=== PATIENT | female | born 1970 | race Caucasian/White ===

== ENCOUNTER 2022-11-18 10:07 | Inpatient (IN) | payer MEDICARE, MEDICAID ==
[~2022-11-18] VITALS: Ht 167.6 cm; Wt 89.4 kg
[~2022-11-18 10:07] MED LIST: PARO40TA PO; VICOT PO
[2022-11-18 10:26] LABS: BASOPHILS % (AUTO) 0.5 % (0.0-2.0); EOSINOPHILS % (AUTO) 0.2 % (1.0-6.0); HEMATOCRIT 43.4 % (36-46); LYMPHOCYTES # (AUTO) 1.3 K/uL (1.0-4.8); LYMPHOCYTES % (AUTO) 12.3 % (22.0-44.0); MEAN CORPUSCULAR HEMOGLOBIN 30.8 pg (26.0-34.0); MEAN CORPUSCULAR HGB CONC 34.6 G/dL (31.0-37.0); MEAN CORPUSCULAR VOLUME 89 fL (80-100); MONOCYTES # (AUTO) 0.6 K/uL (0.1-1.0); MONOCYTES % (AUTO) 5.5 % (2.0-9.0); NEUTROPHILS # (AUTO) 8.5 K/uL (1.8-7.7); NEUTROPHILS % (AUTO) 81.5 % (40.0-70.0); PLATELET COUNT (AUTO) 240 K/uL (150-450); RED BLOOD CELL COUNT(AUTO) 4.88 MIL/uL (4.00-5.20); RED CELL DISTRIBUTION WIDTH 14.3 % (11.5-14.5)
[2022-11-18] MEDS ORDERED: SODIUM CHLORIDE 0.9% 1,000 ML IV ONE (10:30)
[2022-11-18 10:35] LABS: ANION GAP 7 mmol/L (8-16); CALCIUM, TOTAL 9.3 mg/dL (8.8-10.5); CARBON DIOXIDE 26 mmol/L (22-29); CHLORIDE 104 mmol/L (98-107); CREATININE 0.79 mg/dL (0.60-1.30); GLOMERULAR FILTR. RATE CALC > 60 mL/min (>60); GLUCOSE,RANDOM 120 mg/dL (70-110); POTASSIUM 3.6 mmol/L (3.5-5.1); SODIUM SERUM 137 mmol/L (136-145)
[2022-11-18 10:40] LABS: ALANINE AMINOTRANSFERASE 24 U/L (12-78); ALBUMIN 3.7 g/dL (3.4-5.0); ALKALINE PHOSPHATASE 103 U/L (46-116); ASPARTATE AMINOTRANSFERASE 20 U/L (15-37); BILIRUBIN,TOTAL 0.5 mg/dL (0.1-1.0); TOTAL PROTEIN, SERUM 7.5 g/dL (6.4-8.2)
[2022-11-18 10:45] LABS: ACETAMINOPHEN < 2 mcg/mL (10-30)
[2022-11-18 11:09] LABS: SALICYLATE 4.6 mg/dL (2.8-20.0)
[2022-11-18 11:33] LABS: COVID AG,FIA SOURCE NASAL SWAB
[2022-11-18 12:00] LABS: INFLUENZA TYPE A NEGATIVE FOR TYPE A (NEGATIVE); INFLUENZA TYPE B NEGATIVE FOR TYPE B (NEGATIVE)
[2022-11-18 12:31] LABS: AMPHET/METH SCREEN,URINE NEGATIVE (NEGATIVE); BARBITURATE SCREEN, URINE NEGATIVE (NEGATIVE); BENZODIAZEPINES SCREEN,URINE NEGATIVE (NEGATIVE); CANNABINOID SCREEN,URINE POSITIVE (NEGATIVE); COCAINE SCREEN,URINE NEGATIVE (NEGATIVE); METHADONE SCREEN, URINE NEGATIVE (NEGATIVE); OPIATE SCREEN,URINE NEGATIVE (NEGATIVE); PHENCYCLIDINE SCREEN,URINE NEGATIVE (NEGATIVE)
[2022-11-18 13:36] LABS: SALICYLATE 4.1 mg/dL (2.8-20.0)
[2022-11-18] MEDS ORDERED: ZOLPIDEM TARTRATE 10 MG TABLET PO PRN (13:45)
[2022-11-18] MEDS ORDERED: QUEtiapine FUMARATE 100 MG TABLET PO PRN (13:45)
[2022-11-18] MEDS ORDERED: LORazepam 2 MG TABLET PO PRN (13:45)
[2022-11-18 13:50] LABS: ACETAMINOPHEN < 2 mcg/mL (10-30)
[2022-11-18 20:11] VITALS: BP 110/73; PULSE 89; RESP 18; TEMP 97.7; O2SAT 98
[2022-11-18 21:20] VITALS: BP 124/70; PULSE 65; RESP 17; TEMP 98; O2SAT 97
[2022-11-19] MEDS ORDERED: ACETAMINOPHEN 325 MG TABLET PO PRN (07:00)
[2022-11-19] MEDS ORDERED: IBUPROFEN 400 MG TABLET PO PRN (07:00)
[2022-11-19] MEDS ORDERED: ONDANSETRON HCL 4 MG TABLET PO PRN (07:00)
[2022-11-19] MEDS ORDERED: LOPERAMIDE HCL 2 MG CAPSULE PO PRN (07:00)
[2022-11-19] MEDS ORDERED: PETROLATUM,WHITE 28 GM JELLY TP PRN (07:00)
[2022-11-19] MEDS ORDERED: GuaiFENesin/D-METHORPHAN [SUGAR-FREE] 200-20MG/10 ML SYRUP UDCUP PO PRN (07:00)
[2022-11-19] MEDS ORDERED: ALBUTEROL SULFATE HFA 90 MCG/PUFF 8 GM INHALER IH PRN (07:00)
[2022-11-19] MEDS ORDERED: CloNIDine HCL 0.1 MG TABLET PO PRN (07:00)
[2022-11-19] MEDS ORDERED: MAGNESIUM HYDROXIDE SUSPENSION 30 ML UDCUP PO PRN (07:00)
[2022-11-19] MEDS ORDERED: MAG HYDROX/AL HYDROX/SIMETH ES 30 ML SUSPENSION UDCUP PO PRN (07:00)
[2022-11-19] MEDS ORDERED: NICOTINE 14 MG/24 HOUR PATCH TD PRN (07:00)
[2022-11-19] MEDS ORDERED: DOCUSATE SODIUM 100 MG CAPSULE PO PRN (07:00)
[2022-11-19] MEDS ORDERED: NICOTINE POLACRILEX 2 MG LOZENGE PO PRN (07:00)
[2022-11-19 08:41] VITALS: BP 131/69; PULSE 71; RESP 19; TEMP 97.5
[2022-11-19] MEDS: OLANZapine 5 MG TABLET PO SCH ×2 (13:29→20:57)
[2022-11-19] MEDS: LamoTRIgine 100 MG TABLET PO SCH (13:29)
[2022-11-19] MEDS: ESCITALOPRAM OXALATE 10 MG TABLET PO SCH (13:29)
[2022-11-19 20:02] VITALS: BP 120/70; PULSE 99; RESP 17; TEMP 97.2
[2022-11-20 02:06] LABS: HEPATITIS C AB (EIA) Non Reactive (Non Reactive)
[2022-11-20 08:15] LABS: THYROID STIMULATING HORMONE 1.19 uIU/mL (0.36-3.74)
[2022-11-20] MEDS: ESCITALOPRAM OXALATE 10 MG TABLET PO SCH (08:16)
[2022-11-20] MEDS: LamoTRIgine 100 MG TABLET PO SCH (08:16)
[2022-11-20] MEDS: OLANZapine 5 MG TABLET PO SCH ×2 (08:16→21:00)
[2022-11-20 08:24] LABS: HEMOGLOBIN A1C 5.4 % (3.8-5.6)
[2022-11-20 08:25] VITALS: BP 127/63; PULSE 63; RESP 18; TEMP 97.6; O2SAT 98
[2022-11-20 21:23] VITALS: BP 152/60; PULSE 70; RESP 17; TEMP 97; O2SAT 98
[2022-11-21 05:38] VITALS: BP 136/69; PULSE 62; RESP 18; TEMP 97.7; O2SAT 98
[2022-11-21] MEDS: LamoTRIgine 100 MG TABLET PO SCH (08:00)
[2022-11-21] MEDS: OLANZapine 5 MG TABLET PO SCH (08:00)
[2022-11-21] MEDS: ESCITALOPRAM OXALATE 10 MG TABLET PO SCH (08:00)
[2022-11-21 08:06] VITALS: BP 134/64; PULSE 66; RESP 18; TEMP 97.8; O2SAT 98
[2022-11-21] MEDS ORDERED: OLAN5TAB52 PO (11:00)
[2022-11-21] MEDS ORDERED: LAMO-24 PO (11:00)
[2022-11-21] MEDS ORDERED: ESCI-8 PO (11:00)
== END 2022-11-21 12:15 | disposition home or self-care (01) | DRG 885 ==
LOC: EMS 10:09 → B2S 15:48
PROVIDERS: ADMIT Psychiatry & Neurology Psychiatry; ATTEND Psychiatry & Neurology Psychiatry
DX: F31.4 Bipolar disorder, current episode depressed, severe, without psychotic features (principal); G47.00 Insomnia, unspecified; Z20.822 Contact with and (suspected) exposure to COVID-19; F43.10 Post-traumatic stress disorder, unspecified; F10.10 Alcohol abuse, uncomplicated; F41.9 Anxiety disorder, unspecified; F19.10 Other psychoactive substance abuse, uncomplicated; T50.992A Poisoning by other drugs, medicaments and biological substances, intentional self-harm, initial encounter; Z87.891 Personal history of nicotine dependence; Y92.89 Other specified places as the place of occurrence of the external cause
CPT/HCPCS: 80053; 80061; 80307; 83036; 84443; 85025; 86803; 87340; 87804; 93005; 99285; G0480; G0481; J7030